=== PATIENT | female | born 1975 | race Caucasian/White ===

== ENCOUNTER 2017-06-23 20:23 | Inpatient (IN) | payer BC ==
[~2017-06-23] VITALS: Ht 165.1 cm; Wt 75.8 kg
[~2017-06-23 20:23] MED LIST: MYLANTA; PEPCID AC PO
--- OUTSIDE RECORDS SUMMARY | 2017-06-23 20:27 | XMS REPORT | Clinical Summary ---
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 Disp. Refills Start End Date Status Date lisdexamfetamine Take 40 mg by mouth every Active (VYVANSE) 40 MG capsule morning. Not on weekends polyethylene glycol Take 17 g by mouth 2 Active (MIRALAX) 17 gram packet (two) times a day. magnesium hydroxide 400 Take 40 mL by mouth once. Active mg/5 mL suspension ONce every other day acetaminophen (TYLENOL) Take 500 mg by mouth Active 500 MG tablet daily as needed for mild pain. ibuprofen (ADVIL,MOTRIN) Take 200 mg by mouth Active 200 MG tablet daily as needed for mild pain. metoprolol succinate XL Take 2 tablets (50 mg 30 tablet 0 12/10/19 12/21/19 Discontin (TOPROL-XL) 25 mg 24 hr total) by mouth nightly 17 17 ued tablet for 30 days. aspirin 81 mg chewable Chew 1 tablet (81 mg 30 tablet 0 12/10/19 Discontin tablet total) daily for 30 days. 17 17 ued famotidine (PEPCID) 20 MG Take 1 tablet (20 mg 20 tablet 0 12/10/19 12/21/19 Discontin tablet total) by mouth 2 (two) 17 17 ued times a day for 10 days. nitroglycerin (NITROSTAT) Place 1 tablet (0.4 mg 20 tablet 0 12/10/19 12/21/19 Discontin 0.4 MG SL tablet total) under the tongue 17 17 ued every 5 (five) minutes as needed for chest pain for up to 10 days. polyethylene glycol Use daily as needed per 12/21/19 12/27/19 Discontin (MIRALAX) 17 gram packet package instructions. Is 17 17 ued over the counter keTOROlac (TORadol) 10 mg Take 1 tablet (10 mg 20 tablet 0 12/24/19 03/17/20 Discontin tablet total) by mouth every 6 17 17 ued (six) hours as needed for moderate pain for up to 20 doses. ciprofloxacin (CIPRO) 500 Take 1 tablet (500 mg 20 tablet 0 12/24/19 01/03/20 MG tablet total) by mouth 2 (two) 17 17 times a day for 10 days. metroNIDAZOLE (FLAGYL) Take 1 tablet (500 mg 30 tablet 0 12/24/19 500 MG tablet total) by mouth 3 (three) 17 17 times a day for 10 days. polyethylene glycol Take 17 g by mouth 2 60 packet 0 12/27/19 (MIRALAX) 17 gram packet (two) times a day for 30 17 17 days. docusate sodium (COLACE) Take 1 capsule (100 mg 60 capsule 0 12/27/19 01/26/20 100 MG capsule total) by mouth 2 (two) 17 17 times a day for 30 days. psyllium husk (METAMUCIL) Take 1 packet by mouth 2 60 packet 0 01/26/20 6 gram packet (two) times a day for 30 17 17 days. ARIPiprazole (ABILIFY) 5 Take 5 mg by mouth 05/20/19 Discontin MG tablet nightly. 18 ued POLYETHYLENE GLYCOL 3350 Take 1 Dose by mouth 04/04/20 Discontin (MIRALAX ORAL) daily as needed. 17 ued HYDROcodone-acetaminophen Take 1 tablet by mouth 05/20/19 Discontin (NORCO) 5-325 mg per every 6 (six) hours as 18 ued tablet needed for moderate pain. acyclovir (ZOVIRAX) 200 Take 1,000 mg by mouth 2 05/20/19 Discontin MG capsule (two) times a day as 18 ued needed. SUPREP BOWEL PREP KIT Take 2 Bottles (354 mL 354 mL 0 03/24/2003/24 17.5-3.13-1.6 gram recon total) by mouth once for 17 17 soln 1 dose. Take as directed by physician traMADol (ULTRAM) 50 mg Take 1 tablet (50 mg 20 tablet 0 12/01/20 12 /06/20 tablet total) by mouth every 6 17 17 (six) hours as needed for moderate pain for up to 5 days. lactulose 20 gram/30 mL Take 15 mL (10 g total) 900 mL 0 05/21/19 solution by mouth 2 (two) times a 18 18 day for 30 days. 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 Generalized abdominal pain 12/24/2016 Bowel obstruction 12/17/2016 Encounters Date Type Specialty Care Team Description 06/02/2017 Procedure visit General Surgery Shailesh Pardo MD Fecal urgency (Primary Dx); Anal stenosis; Other partial intestinal obstruction 05/26/2017 Office Visit General Surgery Shailesh Pardo MD Anal stenosis (Primary Dx) 05/19/2017 [facility] General Surgery Kendall Jasmine MD Lower abdominal pain - Encounter Ambrocio Adams MD (Primary Dx); 05/21/2017 Constipation due to outlet dysfunction 04/16/2017 Office Visit General Surgery Shailesh Pardo MD Change in bowel habits (Primary Dx) 04/01/2017 [facility] General Surgery Shailesh Pardo MD Sigmoid stricture; - Encounter S/P colostomy 04/04/2017 04/01/2017 Procedure Pass General Surgery 04/01/2017 Surgery General Surgery Shailesh Pardo MD LAPAROSCOPIC RECTOSIGMOID RESECTION 03/24/2017 Orders Only General Surgery Shailesh Pardo MD 03/21/2017 Anesthesia General Surgery Destiny Millan, LABOR RELATIONS ANALYST Event 03/17/2017 Pre-Admit Pre-Admission Testing Shailesh Pardo MD Preop testing (Primary Testing Dx) Appointment 02/10/2017 Office Visit General Surgery Shailesh Pardo MD Parastomal hernia without obstruction or gangrene (Primary Dx); Anal stenosis 02/05/2017 Hospital Radiology Shailesh Pardo MD Ileostomy status Encounter 02/04/2017 Orders Only General Surgery Shailesh Pardo MD 02/03/2017 Office Visit General Surgery Shailesh Pardo MD Abdominal pain, generalized (Primary Dx) 02/03/2017 Orders Only General Surgery Shailesh Pardo MD 01/28/2017 Orders Only General Surgery Shailesh Pardo MD 01/20/2017 Orders Only General Surgery Shailesh Pardo MD Ileostomy status (Primary Dx) 01/20/2017 Orders Only General Surgery Shailesh Pardo MD Intestinal obstruction, unspecified type (Primary Dx) 01/15/2017 Office Visit General Surgery Shailesh Pardo MD Colon stricture (Primary Dx) 12/23/2016 Emergency General Surgery David Hernandez MD Generalized abdominal - Mowad, Olga Carl MD pain (Primary Dx); 12/26/2016 Lj Bajwa MD Ileus 12/17/2016 Hospital General Surgery Wayne Ferro MD - Encounter Oliver Everett MD 12/20/2016 12/17/2016 Anesthesia General Surgery Francisca Estrada MD Event 12/17/2016 Procedure Pass General Surgery 12/17/2016 Surgery General Surgery Teja Canas COLOSTOMY, ENMA Kathleen MD 12/09/2016 Emergency Emergency Medicine Quique Mayes Acute angina (Primary MD Car Dx); Other form of dyspnea after 06/22/2016 Family History Medical History Relation Name Comments Diabetes Father Diverticulitis Father Heart disease Father Hypertension Father Diverticulitis Mother Diverticulitis Sister Relation Name Status Comments Father Mother Sister Social History Tobacco Use Types Packs/Day Years Used Date Never Smoker Smokeless Tobacco: Never Used Alcohol Use Drinks/Week oz/Week Comments No Sex Assigned at Date Recorded Not on file Last Filed Vital Signs Vital Sign Reading Time Taken Blood Pressure 122/87 06/02/2017 4:01 PM TELECOMMUNICATION EQUIPMENT REPAIRER Pulse 93 06/02/2017 4:01 PM TELECOMMUNICATION EQUIPMENT REPAIRER Temperature 36.7 C (98 F) 05/21/2017 11:59 AM TELECOMMUNICATION EQUIPMENT REPAIRER Respiratory Rate 18 05/21/2017 11:59 AM TELECOMMUNICATION EQUIPMENT REPAIRER Oxygen Saturation 95% 05/21/2017 11:59 AM TELECOMMUNICATION EQUIPMENT REPAIRER Inhaled Oxygen - - Concentration Weight 76.2 kg (168 lb) 06/02/2017 4:01 PM TELECOMMUNICATION EQUIPMENT REPAIRER Height 165.1 cm (5' 5") 06/02/2017 4:01 PM TELECOMMUNICATION EQUIPMENT REPAIRER Body Mass Index 27.96 06/02/2017 4:01 PM TELECOMMUNICATION EQUIPMENT REPAIRER Plan of Treatment Health Maintenance Due Date Last Done Comments PAP SMEAR 1997 INFLUENZA VACCINE 12/03/2016 Procedures Procedure Name Priority Date/Time Associated Diagnosis Comments IL AN ELECTIVE Routine 04/01/2017 ENDOTRACHEAL AIRWAY 8:34 AM TELECOMMUNICATION EQUIPMENT REPAIRER Procedure Note - Adewunmi, Olufikayo, OPTICAL MANUFACTURING TECHNICIAN - 04/01/2017 8:33 AM TELECOMMUNICATION EQUIPMENT REPAIRER Airway Date/Time: 04/01/2017 7:38 AM Performed by: MACHO COULTER Authorized by: SHAKILA ZAMBRANO Location: OR Urgency: Elective Difficult Airway: No Performed by: resident/C RNA/AA Preoxygena brandan with 100% O2: Yes Mask Ventilatio n: Easy mask Final Airway Type: Endotrache al airway Final Endotrache al Airway: ETT Cuffed: Yes Technique Used: Direct laryngosco py Devices/Me thods Used in Placement: Intubatin g stylet Insertion Site: Oral Blade Type: Banegas Laryngosco pe Blade/Vide olaryngosc ope Blade Size: 2 ETT Size (mm): 7.0 Cuff at minimum occlusion pressure: No Measured from: Lips ETT to Lips (cm): 21 Placement Verified by: CO2 detection, direct visualizat ion and equal breath sounds Laryngosco pic view: Grade IIa - partial view of glottis Rapid Sequence Induction (RSI): No Modified RSI: No Number of Attempts at Approach: 1 Noted that patient has abrasion on lower lip in preop. Eyes taped after LOC. Teeth protected. DL and intubation by aKz soares. Atraumatic intubation . No apparent change to oropharynx /dentition LAPAROSCOPIC COLOSTOMY 04/01/2017 Sigmoid stricture REVERSAL 7:30 AM TELECOMMUNICATION EQUIPMENT REPAIRER Case Notes PINPOINT, AIRSEAL, EST 3 HRS Special Needs PINPOINT, AIRSEAL, EST 3 HRS LAPAROSCOPIC RECTOSIGMOID 04/01/2017 Sigmoid stricture RESECTION 7:30 AM TELECOMMUNICATION EQUIPMENT REPAIRER Case Notes PINPOINT, AIRSEAL, EST 3 HRS Special Needs PINPOINT, AIRSEAL, EST 3 HRS CONSULT TO OSTOMY CARE Routine 12/24/2016 NURSE 7:55 AM CDT CONSULT TO OSTOMY CARE Routine 12/18/2016 NURSE 7:26 AM CDT CENTRAL LINE Routine 12/17/2016 8:18 PM CDT Procedure Note - Francisca Estrada MD - 12/17/2016 8:11 PM CDT Central line Performed by: FRANCISCA ESTRADA Authorized by: FRANCISCA ESTRADA Patient Location: OR Staff: Anesthesio logist: FRANCISCA ESTRADA Performed by: Anesthesio logist Preprocedu re:patient identified , site and side verified, procedure verified, patient position confirmed and pre-op evaluation complete MSBT: antiseptic used during central venous catheter insertion, all elements of maximal sterile barrier technique followed, hand hygiene performed prior to central venous catheter insertion, cap/gown used by other personnel during central venous catheter insertion, solutions labeled and all ports not used during insertion clamped Indication s: Indication s: Vascular access Anesthesia : Anesthesia : General Procedure details: Patient position: Trendelenb urg Catheter Type: Double lumen Catheter Size: 8 Fr Catheter site laterality : Left Ultrasound guidance used: No Ultrasound image saved: No Number of attempts: 1 Guidewire removal: Guidewire removal is confirmed Guidewire removal witnessed by: DRU WILLIAMSON Post-proce dure: Post-proce dure: line sutured and sterile dressing applied per protocol Post-proce dure: Blood cleaned with CHG Assessment : Blood return through all ports and free fluid flow Patient tolerance: Patient tolerated the procedure well with no immediate complicati ons IL AN ELECTIVE Routine 12/17/2016 ENDOTRACHEAL AIRWAY 8:11 PM CDT Procedure Note - Francisca Estrada MD - 12/17/2016 8:10 PM CDT Airway Performed by: FRANCISCA ESTRADA Authorized by: FRANCISCA ESTRADA Location: OR Urgency: Elective Difficult Airway: No Anesthesio logist: FRANCISCA ESTRADA Performed by: anesthesimarita yu Preoxygena brandan with 100% O2: Yes C-spine Precaution s Maintained Throughout : Yes Final Airway Type: Endotrache al airway Final Endotrache al Airway: ETT Cuffed: Yes Technique Used: Direct laryngosco py Insertion Site: Oral Blade Type: Banegas Laryngosco pe Blade/Vide olaryngosc ope Blade Size: 3 ETT Size (mm): 7.0 Cuff at minimum occlusion pressure: Yes Measured from: Gums ETT to Gums (cm): 21 Placement Verified by: CO2 detection, direct visualizat ion and equal breath sounds Laryngosco pic view: Grade I - full view of glottis Rapid Sequence Induction (RSI): Yes Modified RSI: No Number of Attempts at Approach: 1 COLOSTOMY, LAPAROSCOPIC 12/17/2016 COLOSTOMY 6:00 PM CDT after 06/22/2016 Results * Estimated GFR (05/21/2017 4:00 AM) Only the most recent of 13 results within the time period is included. Component Value Ref Range GFR Non Af Amer >90 mL/min/1.73 m2 GFR Af Amer >90 mL/min/1.73 m2 Comment: Chronic kidney disease: <60 mL/min/1.73m2 Kidney failure: <15 mL/min/1.73m2 The estimated GFR is calculated from the IDMS-traceable Modification of Diet in Renal Disease Equation. The accuracy of the calculation is poor when the creatinine is normal. Calculated values >90 mL/min/1.73m2 are not reported. This equation has not been validated in children (<18 years), women, the elderly (>70 years), or ethnic groups other than Caucasians and Americans. Specimen Performing Laboratory Plasma specimen [facility] DEPARTMENT OF PATHOLOGY AND GENOMIC MEDICINE [address] [place] [phone] * Basic metabolic panel (05/21/2017 4:00 AM) Only the most recent of 10 results within the time period is included. Component Value Ref Range Sodium 139 135 - 148 mEq/L Potassium 3.9 3.5 - 5.0 mEq/L Chloride 101 98 - 112 mEq/L CO2 24 24 - 31 mEq/L Anion gap 14 7 - 15 mEq/L Comment: Starting from August , anion gap calculation no longer incorporates potassium. Please note the change. BUN 6 6 - 20 mg/dL Creatinine 0.6 0.5 - 0.9 mg/dL Glucose 81 65 - 99 mg/dL Calcium 8.9 8.3 - 10.2 mg/dL Specimen Performing Laboratory Plasma specimen [facility] DEPARTMENT OF PATHOLOGY AND GENOMIC MEDICINE [address] [place] [id number] * CBC with platelet and differential (05/21/2017 3:40 AM) Only the most recent of 13 results within the time period is included. Component Value Ref Range WBC 4.90 4.50 - 11.00 k/uL RBC 4.13 (L) 4.20 - 5.50 m/uL HGB 10.9 (L) 12.0 - 16.0 g/dL HCT 35.4 (L) 37.0 - 47.0 % MCV 85.7 82.0 - 100.0 fL MCH 26.4 (L) 27.0 - 34.0 pg MCHC 30.8 (L) 31.0 - 37.0 g/dL RDW - SD 48.2 37.0 - 55.0 fL MPV 11.3 8.8 - 13.2 fL Platelet count 353 150 - 400 k/uL Nucleated RBC 0.00 /100 WBC Neutrophils 50.8 39.0 - 69.0 % Lymphocytes 34.1 25.0 - 45.0 % Monocytes 8.6 0.0 - 10.0 % Eosinophils 4.9 0.0 - 5.0 % Basophils 1.2 (H) 0.0 - 1.0 % Immature granulocytes 0.4Comment: "Immature granulocytes" 0.0 - 1.0 % (promyelocytes, myelocytes, metamyelocytes) Specimen Performing Laboratory Blood [facility] DEPARTMENT OF PATHOLOGY AND [facility] MEDICINE [address] [place] [id number] * Hepatic function panel (05/20/2017 4:00 AM) Only the most recent of 2 results within the time period is included. Component Value Ref Range Albumin 3.2 (L) 3.5 - 5.0 g/dL Total bilirubin 0.4 0.0 - 1.2 mg/dL Bilirubin direct <0.2 0.0 - 0.3 mg/dL Alkaline phosphatase 58 35 - 104 U/L Protein 6.9 6.3 - 8.3 g/dL Comment: 4.6-7.0 g/dL 1 week 4.4-7.6 g/dL 7 months-1year 5.1-7.3 g/dL 1-2 years 5.6-7.5 g/dL >3 years 6.0-8.0 g/dL 18-150 6.3-8.3 g/dL ALT 16 5 - 50 U/L AST 19 10 - 35 U/L Specimen Performing Laboratory Plasma specimen [facility] DEPARTMENT OF PATHOLOGY AND GENOMIC MEDICINE [address] [place] [id number] * CT Abdomen Pelvis W Contrast (05/20/2017 12:37 AM) Only the most recent of 2 results within the time period is included. Specimen Performing Laboratory [address] ABDOMEN PELVIS W CONTRAST CLINICAL INDICATION:ABDOMINAL PAIN, concern for obstruction TECHNIQUE: Multidetector CT of the abdomen and pelvis was performed following intravenous administration of iodinated contrast with multiplanar reformats. CT scans are performed using radiation dose reduction techniques (iterative reconstruction and/or automated exposure control). Technical factors are evaluated and adjusted to ensure appropriate moderation of exposure. Automated dose management technology is applied to adjust radiation exposure while achieving a diagnostic quality image. COMPARISON:CT 12/23/2016. FINDINGS: Lung bases:Dependent subsegmental atelectasis/scarring. Liver:Few hypodensities within the liver, larger of which resemble cysts measuring up to 1.0 cm in the right hepatic lobe though some are too small to characterize. Gallbladder and biliary:The gallbladder is absent. Clips within the gallbladder fossa. Pancreas:Normal. Spleen:Normal. Gastrointestinal:Postsurgical changes of the distal colon. Focus of circumscribed fat adjacent to sutures in the left abdomen/retroperitoneum measuring 3.1 x 2.7 x 2.8 cm (series 2 image 88), with mild surrounding stranding. Large and small bowel are normal in caliber. Appendix is visualized and appears normal. Adrenals:Normal. Kidneys and ureters:Bilateral renal cortical scarring. No mass or hydronephrosis. Urinary bladder:Normal. Lymph nodes:No enlarged lymph nodes in the abdomen or pelvis. Peritoneum:No ascites or free air. Vascular:Unremarkable. Reproductive organs:Uterus is normal. Unremarkable adnexae. Abdominal wall: Prior ostomy. Bones:No acute osseous abnormalities. IMPRESSION: 1. Focus of circumscribed fat adjacent to sutures in the left abdomen/ retroperitoneum measuring 3.1 x 2.7 x 2.8 cm with mild surrounding stranding, suggesting fat necrosis. 2. No bowel obstruction or other bowel complication. [facility]-[id number] Procedure Note [facility], Radiology Results Incoming - 05/20/2017 1:05 AM TELECOMMUNICATION EQUIPMENT REPAIRER CT ABDOMEN PELVIS W CONTRAST CLINICAL INDICATION: ABDOMINAL PAIN, concern for obstruction TECHNIQUE: Multidetector CT of the abdomen and pelvis was performed following intravenous administration of iodinated contrast with multiplanar reformats. CT scans are performed using radiation dose reduction techniques (iterative reconstruction and/or automated exposure control). Technical factors are evaluated and adjusted to ensure appropriate moderation of exposure. Automated dose management technology is applied to adjust radiation exposure while achieving a diagnostic quality image. COMPARISON: CT 12/23/2016. FINDINGS: Lung bases: Dependent subsegmental atelectasis/scarring. Liver: Few hypodensities within the liver, larger of which resemble cysts measuring up to 1.0 cm in the right hepatic lobe though some are too small to characterize. Gallbladder and biliary: The gallbladder is absent. Clips within the gallbladder fossa. Pancreas: Normal. Spleen: Normal. Gastrointestinal: Postsurgical changes of the distal colon. Focus of circumscribed fat adjacent to sutures in the left abdomen/retroperitoneum measuring 3.1 x 2.7 x 2.8 cm (series 2 image 88), with mild surrounding stranding. Large and small bowel are normal in caliber. Appendix is visualized and appears normal. Adrenals: Normal. Kidneys and ureters: Bilateral renal cortical scarring. No mass or hydronephrosis. Urinary bladder: Normal. Lymph nodes: No enlarged lymph nodes in the abdomen or pelvis. Peritoneum: No ascites or free air. Vascular: Unremarkable. Reproductive organs: Uterus is normal. Unremarkable adnexae. Abdominal wall: Prior ostomy. Bones: No acute osseous abnormalities. IMPRESSION: 1. Focus of circumscribed fat adjacent to sutures in the left abdomen/ retroperitoneum measuring 3.1 x 2.7 x 2.8 cm with mild surrounding stranding, suggesting fat necrosis. 2. No bowel obstruction or other bowel complication. [facility]-[id number] * XR Abdomen 1 Vw (05/19/2017 10:40 PM) Specimen Performing Laboratory [facility] [address] [place] [id number] Narrative EXAMINATION:XR ABDOMEN 1 VW CLINICAL HISTORY:Bowel obstruction COMPARISON:None. FINDINGS: The bowel gas pattern is nonspecific. No pathologic masses or calcifications are identified. The lung bases are free of acute disease. Regional skeletal structures are within normal limits. Surgical clips are present in the right upper quadrant. IMPRESSION: Unremarkable abdominal radiograph. [facility]-[id number] Procedure Note Interface, Radiology Results Incoming - 05/19/2017 11:03 PM TELECOMMUNICATION EQUIPMENT REPAIRER EXAMINATION: XR ABDOMEN 1 VW CLINICAL HISTORY: Bowel obstruction COMPARISON: None. FINDINGS: The bowel gas pattern is nonspecific. No pathologic masses or calcifications are identified. The lung bases are free of acute disease. Regional skeletal structures are within normal limits. Surgical clips are present in the right upper quadrant. IMPRESSION: Unremarkable abdominal radiograph. [facility]-[id number] * Comprehensive metabolic panel (05/19/2017 10:02 PM) Only the most recent of 3 results within the time period is included. Component Value Ref Range Sodium 139 135 - 148 mEq/L Potassium 3.5 3.5 - 5.0 mEq/L Chloride 98 98 - 112 mEq/L CO2 24 24 - 31 mEq/L Anion gap 17 (H) 7 - 15 mEq/L Comment: Starting from August , anion gap calculation no longer incorporates potassium. Please note the change. BUN 10 6 - 20 mg/dL Creatinine 0.7 0.5 - 0.9 mg/dL Glucose 88 65 - 99 mg/dL Calcium 9.8 8.3 - 10.2 mg/dL Protein 8.3 6.3 - 8.3 g/dL Comment: Parker 4.6-7.0 g/dL 1 week 4.4-7.6 g/dL 7 months-1year 5.1-7.3 g/dL 1-2 years 5.6-7.5 g/dL >3 years 6.0-8.0 g/dL 18-150 6.3-8.3 g/dL Albumin 4.2 3.5 - 5.0 g/dL A/G ratio 1.0 0.7 - 3.8 Alkaline phosphatase 69 35 - 104 U/L AST 17 10 - 35 U/L ALT 19 5 - 50 U/L Total bilirubin 0.4 0.0 - 1.2 mg/dL Specimen Performing Laboratory Plasma specimen [facility] DEPARTMENT OF PATHOLOGY AND GENOMIC MEDICINE [address] [place], [place] [id number] * Phosphorus level (04/04/2017 4:00 AM) Only the most recent of 3 results within the time period is included. Component Value Ref Range Phosphorus 3.4 2.4 - 4.5 mg/dL Specimen Performing Laboratory Plasma specimen [facility] DEPARTMENT OF PATHOLOGY AND [facility] MEDICINE [address] [place] [id number] * Magnesium level (04/04/2017 4:00 AM) Only the most recent of 7 results within the time period is included. Component Value Ref Range Magnesium 2.0 1.6 - 2.6 mg/dL Specimen Performing Laboratory Plasma specimen [facility] DEPARTMENT OF PATHOLOGY AND GENOMIC MEDICINE [address] [place], [place] [id number] * Surgical pathology request (04/01/2017 12:40 PM) Only the most recent of 3 results within the time period is included. Component Value Ref Range Surgical pathology report See link below for PDF Lab Report Result status This is Final Report to [id number] Specimen Performing Laboratory [facility] DEPARTMENT OF PATHOLOGY AND GENOMIC MEDICINE [address] [place] [id number] * ECG 12 lead (03/17/2017 10:54 AM) Only the most recent of 3 results within the time period is included. Component Value Ref Range Ventricular rate 76 Atrial rate 76 IL interval 148 QRSD interval 82 QT interval 382 QTC interval 429 P axis 1 63 QRS axis 1 42 T wave axis 36 EKG impression Normal sinus rhythm-Normal ECG- Specimen Performing Laboratory [facility] MUSE [address] [place] [id number] * Type and screen (03/17/2017 9:32 AM) Only the most recent of 2 results within the time period is included. Component Value Ref Range ABO grouping A Rh type POS Antibody screen (gel) NEG Specimen Performing Laboratory Blood [facility] DEPARTMENT OF PATHOLOGY AND GENOMIC MEDICINE [address] [place] [address] * FL Colon Gastrografin Water Soluble Enema (02/05/2017 11:26 AM) Specimen Performing Laboratory [facility] [address] [place] [address] Narrative EXAMINATION:FL COLON GASTROGRAFIN WATER SOLUBLE ENEMA CLINICAL HISTORY:Z93.2 Ileostomy status, ileostomy status COMPARISON:CT December 23, 2016. TECHNIQUE:Gastrografin contrast was administered via a rectal tube by gravity under fluoroscopic guidance. The colon was opacified in a retrograde fashion to the cecum. Spot radiographs and overhead films were obtained. FLUOROSCOPIC TIME:1.2 minute. 15 fluoroscopic spot images are acquired. IMPRESSION: [employer] radiograph is within normal limits. Ostomy is seen in the left lower quadrant. There was successful retrograde opacification of the rectum and sigmoid colon up to the ostomy. The rectum is normally distensible, and the sigmoid appears slightly attenuated in caliber but without focal stricture identified. Somewhat narrowed appearance leading into the ostomy bag is of questionable for true stricture versus some expected tapering in the subcutaneous segment. No extraluminal contrast extravasation. Unremarkable enema. [facility]-[id number] Procedure Note Hm Interface, Radiology Results Incoming - 02/05/2017 12:47 PM CDT EXAMINATION: FL COLON GASTROGRAFIN WATER SOLUBLE ENEMA CLINICAL HISTORY: Z93.2 Ileostomy status, ileostomy status COMPARISON: CT December 23, 2016. TECHNIQUE: Gastrografin contrast was administered via a rectal tube by gravity under fluoroscopic guidance. The colon was opacified in a retrograde fashion to the cecum. Spot radiographs and overhead films were obtained. FLUOROSCOPIC TIME: 1.2 minute. 15 fluoroscopic spot images are acquired. IMPRESSION: [employer] radiograph is within normal limits. Ostomy is seen in the left lower quadrant. There was successful retrograde opacification of the rectum and sigmoid colon up to the ostomy. The rectum is normally distensible, and the sigmoid appears slightly attenuated in caliber but without focal stricture identified. Somewhat narrowed appearance leading into the ostomy bag is of questionable for true stricture versus some expected tapering in the subcutaneous segment. No extraluminal contrast extravasation. Unremarkable enema. [facility]-[id number] * Radiology Exam Surg Specimen (01/29/2017) * ECG ED Preliminary Interpretation - NOT AN ORDER (12/24/2016 1:21 AM) Only the most recent of 2 results within the time period is included. Narrative Olga Fox MD 12/24/20161:21 AM ECG ED Preliminary Interpretation - Not an Order Performed by: STEPH NICHOLS Authorized by: DAVID HERNANDEZ ECG reviewed by ED Physician in the absence of a cryptographic technician: yes Interpretation: Interpretation: abnormal Rate: ECG rate:53 Rhythm: Rhythm: sinus rhythm Ectopy: Ectopy: none QRS: QRS intervals:Wide (118 ms) Conduction: Conduction: abnormal Abnormal conduction: incomplete RBBB T waves: T waves: inverted Inverted:V2 and V3 * Urinalysis screen and microscopy, with reflex to culture (12/23/2016 6:30 PM) Only the most recent of 3 results within the time period is included. Component Value Ref Range Specimen site Clean catch Color, UA Yellow Appearance, UA Clear Specific gravity, UA 1.015 1.001 - 1.035 pH, UA 7.0 5.0 - 8.5 Protein, UA Negative Negative Glucose, UA Negative Negative Ketones, UA Negative Negative Bilirubin, UA Negative Negative Blood, UA Large (A) Negative Nitrite, UA Negative Negative Urobilinogen, UA <2.0 <2.0 Leukocyte esterase, UA Trace (A) Negative Epithelial cells, UA 2 /HPF Round epithelial cells, 0 0 - 1 /HPF UA WBC, UA 4 0 - 4 /HPF RBC, UA 2 0 - 2 /HPF Bacteria, UA Moderate (A) None seen Yeast, UA None seen Yeast with pseudohyphae, None seen UA Specimen Performing Laboratory Urine DEPARTMENT OF PATHOLOGY AND [facility]IC[facility], [address] [place] [address] * hCG qualitative, urine screen (12/23/2016 6:30 PM) Only the most recent of 3 results within the time period is included. Component Value Ref Range hCG qualitative, urine NegativeComment: Sensitivity of HCG test: 25 mIU/mL Specimen Performing Laboratory Urine DEPARTMENT OF PATHOLOGY AND GENOMIC MEDICINE[address] [place] [address] * Gram stain (12/23/2016 6:28 PM) Only the most recent of 3 results within the time period is included. Component Value Ref Range Gram stain result No WBC's Rare Gram positive rods Occasional Gram positive cocci in pairs Comment: Specimen Information Specimen Source: Urine Specimen Site: Clean catch Specimen Performing Laboratory Urine [facility] DEPARTMENT OF PATHOLOGY AND GENOMIC MEDICINE [address] [place] [address] * Urine culture (12/23/2016 6:28 PM) Only the most recent of 3 results within the time period is included. Component Value Ref Range Urine culture isolate Mixed Gram positive vlad 10-2 cfu/ml (A) Comment: Specimen Information Specimen Source: Urine Specimen Site: Clean catch Specimen Performing Laboratory Urine [facility] DEPARTMENT OF PATHOLOGY AND GENOMIC MEDICINE [address] [place] [address] * US Renal (12/19/2016 12:57 PM) [place] [address] Narrative EXAMINATION:US RENAL CLINICAL HISTORY:HYDRONEPHROSIS, Hematuria COMPARISON:None. FINDINGS: The kidneys are normal in size and echogenicity. There is no evidence of any solid renal mass, calculi, or hydronephrosis. The right kidney ystkqtqy78.3X5.4X5.4 cm.there is a small cyst seen within the right kidney.. The left kidney ckahscjw47.4X5.7 X 5.8 cm. The urinary bladder is unremarkable. IMPRESSION: 1.Normal renal ultrasound examination. 2. The kidneys are of normal size and echotexture. [id number] Procedure Note Interface, Radiology Results Incoming - 12/19/2016 2:41 PM CDT EXAMINATION: US RENAL CLINICAL HISTORY: HYDRONEPHROSIS, Hematuria COMPARISON: None. FINDINGS: The kidneys are normal in size and echogenicity. There is no evidence of any solid renal mass, calculi, or hydronephrosis. The right kidney measures 12.3 X 5.4 X 5.4 cm. there is a small cyst seen within the right kidney.. The left kidney measures 13.4 X 5.7 X 5.8 cm. The urinary bladder is unremarkable. IMPRESSION: 1.Normal renal ultrasound examination. 2. The kidneys are of normal size and echotexture. [id number] * POC glucose (12/18/2016 5:05 AM) Only the most recent of 3 results within the time period is included. Component Value Ref Range POC glucose 155 (H) 65 - 99 mg/dL Comment: [facility] Notified RN Meter ID: [id number] Senior Specialist: Carlos Ortega Specimen Performing Laboratory [facility] DEPARTMENT OF PATHOLOGY AND GENOMIC MEDICINE [address] [place] [address] * Fungus smear (12/17/2016 8:05 PM) Component Value Ref Range Fungus smear No fungi observed. Comment: Specimen Information Specimen Source: Peritoneal fluid Specimen Site: Not otherwise specified Specimen Performing Laboratory Peritoneal fluid - Not [facility] DEPARTMENT OF PATHOLOGY AND GENOMIC MEDICINE otherwise specified [address] [place] [address] * AFB culture (12/17/2016 8:05 PM) Component Value Ref Range AFB culture isolate No growth after 6 weeks of incubation. Comment: Specimen Information Specimen Source: Peritoneal fluid Specimen Site: Not otherwise specified Specimen Performing Laboratory Peritoneal fluid - Not [facility] DEPARTMENT OF PATHOLOGY AND GENOMIC MEDICINE otherwise specified [address] [place], [place] [id number] * Aerobic culture (12/17/2016 8:05 PM) Component Value Ref Range Aerobic culture isolate No growth after 3 days. Comment: Specimen Information Specimen Source: Peritoneal fluid Specimen Site: Not otherwise specified Specimen Performing Laboratory Peritoneal fluid - Not [facility] DEPARTMENT OF PATHOLOGY AND GENOMIC MEDICINE otherwise specified [address] [place] [address] * AFB stain (12/17/2016 8:05 PM) Component Value Ref Range AFB stain No acid fast bacilli (AFB) seen. Comment: Specimen Information Specimen Source: Peritoneal fluid Specimen Site: Not otherwise specified Specimen Performing Laboratory Peritoneal fluid - Not [facility] DEPARTMENT OF PATHOLOGY AND GENOMIC MEDICINE otherwise specified [address] [place] [address] * Fungus culture (12/17/2016 8:05 PM) Component Value Ref Range Fungus culture isolate No growth after 4 weeks of incubation. Comment: Specimen Information Specimen Source: Peritoneal fluid Specimen Site: Not otherwise specified Specimen Performing Laboratory Peritoneal fluid - Not [facility] DEPARTMENT OF PATHOLOGY AND [facility] otherwise specified [address] [place] [address] * Anaerobic culture (12/17/2016 8:05 PM) Component Value Ref Range Anaerobic culture isolate No anaerobic organisms isolated. Comment: Specimen Information Specimen Source: Peritoneal fluid Specimen Site: Not otherwise specified Specimen Performing Laboratory Peritoneal fluid - Not [facility] OF PATHOLOGY AND [facility] otherwise specified [address] [place] [address] * Partial thromboplastin time, activated (12/17/2016 4:15 PM) Only the most recent of 2 results within the time period is included. Component Value Ref Range PTT 26.0 23.0 - 36.0 sec Comment: PTT therapeutic range for unfractionated heparin is 61.0-112.0 seconds which corresponds to Anti-Xa 0.3-0.7 U/ml. Specimen Performing Laboratory Blood [facility] OF PATHOLOGY AND [place] [id number] * Prothrombin time with INR (12/17/2016 4:15 PM) Only the most recent of 2 results within the time period is included. Component Value Ref Range Prothrombin time 13.8 12.0 - 15.0 sec INR 1.1 Comment: The International Normalized Ratio (INR) is a therapeutic monitoring tool for patients who are stable on oral anticoagulant therapy. An INR of 2.0-3.0 is suggested for deep vein thrombosis/pulmonary embolism. Specimen Performing Laboratory Blood [facility] DEPARTMENT OF PATHOLOGY AND [address] [address] * CT Angiogram Pe Chest (12/09/2016 6:39 PM) Specimen [facility] [address] [place] [address] Narrative EXAMINATION: CT ANGIOGRAM PE CHEST CLINICAL HISTORY: Chest Pain TECHNIQUE: An emergency study was performed at [address] images were acquired using low-dose technique with iterative reconstructions and or automated exposure control to reduce radiation dose. CT angiographic images of the chest were obtained during intravenous administration of iodinated contrast. Computerized reformatted images and 3-D MIP images were also obtained and archived (CT pulmonary embolus protocol). COMPARISON: PA and lateral chest, obtained on 12/09/2016. FINDINGS: Skeletal structures are within normal limits.There is no pleural fluid or infiltrate. The heart is normal in size. Aorta and great vessels are normal. Pulmonary arteries are well opacified. Filling defect is not seen. Pulmonary veins are normal in caliber.Mediastinum is free of masses and adenopathy.Visualized portions of the upper abdomen demonstrate postoperative changes from cholecystectomy. IMPRESSION: No pulmonary emboli. Normal CT scan of the chest. Status post cholecystectomy. [id number] Procedure Note [facility], Radiology Results Incoming - 12/09/2016 6:50 PM CDT EXAMINATION: CT ANGIOGRAM PE CHEST CLINICAL HISTORY: Chest Pain TECHNIQUE: An emergency study was performed at [address] images were acquired using low-dose technique with iterative reconstructions and or automated exposure control to reduce radiation dose. CT angiographic images of the chest were obtained during intravenous administration of iodinated contrast. Computerized reformatted images and 3-D MIP images were also obtained and archived (CT pulmonary embolus protocol). COMPARISON: PA and lateral chest, obtained on 12/09/2016. FINDINGS: Skeletal structures are within normal limits. There is no pleural fluid or infiltrate. The heart is normal in size. Aorta and great vessels are normal. Pulmonary arteries are well opacified. Filling defect is not seen. Pulmonary veins are normal in caliber. Mediastinum is free of masses and adenopathy. Visualized portions of the upper abdomen demonstrate postoperative changes from cholecystectomy. IMPRESSION: No pulmonary emboli. Normal CT scan of the chest. Status [facility]cyst[facility]. [id number] * Troponin (12/09/2016 5:10 PM) Only the most recent of 2 results within the time period is included. Component Value Ref Range Troponin <0.30 0.00 - 0.30 ng/mL Comment: 0.30 - 1.49 ng/ml May indicate increased risk of acute coronary syndrome. >=1.5 ng/ml Consistent with acute myocardial infarction. The diagnostic value of a single normal or non-diagnostic result is questionable. Serial samples at 2-6 hour intervals are required to rule out acute myocardial injury. Specimen Performing Laboratory Plasma specimen [facility] DEPARTMENT OF PATHOLOGY AND GENOMIC MEDICINE [address] [place] [address] * B natriuretic peptide (12/09/2016 3:21 PM) Component Value Ref Range BNP 11 0 - 100 pg/mL Specimen Performing Laboratory Blood [facility] DEPARTMENT OF PATHOLOGY AND GENOMIC MEDICINE [address] [place] [address] * XR Chest 2 Vw (12/09/2016 2:38 PM) Specimen Performing Laboratory [facility] [address] [place] [address] Narrative EXAMINATION:XR CHEST 2 VW CLINICAL HISTORY:Chest Pain COMPARISON:None. FINDINGS: Two views of the chest demonstrate normal cardiomediastinal silhouette. Pulmonary vasculature is within normal limits. Both lungs are clear. No pleural disease is identified. Regional osseous structures is unremarkable. IMPRESSION: No radiographic evidence of acute cardiopulmonary process or active disease of the chest. [id number] Procedure Note Interface, Radiology Results Incoming - 12/09/2016 2:44 PM CDT EXAMINATION: XR CHEST 2 VW CLINICAL HISTORY: Chest Pain COMPARISON: None. FINDINGS: Two views of the chest demonstrate normal cardiomediastinal silhouette. Pulmonary vasculature is within normal limits. Both lungs are clear. No pleural disease is identified. Regional osseous structures is unremarkable. IMPRESSION: No radiographic evidence of acute cardiopulmonary process or active disease of the chest. [id number] after 06/22/2016 Insurance Payer Benefit Subscriber ID Type Phone Address Plan / Group [facility] SUJATA xxxxxxxxxxxx PPO BLUE CROSS BCBS BCBS xxxxxxxxxxxx PPO CHOICE PPO/[place] [address] [place] [address]
[2017-06-23] MEDS ORDERED: DIATRIZOATE MEGL/DIATRIZOA SOD 30 ML BTL PO ONE (21:30)
[2017-06-23 21:33] LABS: BILIRUBIN,URINE NEGATIVE (NEGATIVE); COLOR,URINE YELLOW (YELLOW); KETONES,URINE NEGATIVE (NEGATIVE); LEUKOCYTE ESTERASE ,URINE TRACE (NEGATIVE); NITRITE,URINE NEGATIVE (NEGATIVE); PROTEIN,URINE DIPSTICK NEGATIVE (NEGATIVE); URINE UROBILINOGEN 0.2 mg/dL (0.2 - 1)
[2017-06-23 21:35] LABS: CLARITY,URINE SL CLOUDY (CLEAR); PREGNANCY TEST, URINE NEGATIVE (NEGATIVE)
[2017-06-23] MEDS ORDERED: MORPHINE SULFATE 2 MG/ML SYR IV STA (21:35)
[2017-06-23] MEDS ORDERED: ONDANSETRON HCL INJ 2 MG/ML VIAL IV STA ×2 (21:35→23:50)
[2017-06-23 21:45] LABS: BASOPHILS # (AUTO) 0.1 (0.0-0.1); EOSINOPHILS # (AUTO) 0.3 (0.0-0.4); EOSINOPHILS % 3.6 % (0.0-6.0); HEMATOCRIT 33.2 % (34.2-44.1); HEMOGLOBIN 10.7 g/dL (12.0-16.0); LYMPHOCYTES # (AUTO) 2.4 (1.0-3.2); LYMPHOCYTES % 27.3 % (18.0-39.1); MEAN CORPUSCULAR HEMOGLOBIN 26.6 pg (28-32); MEAN CORPUSCULAR HGB CONC 32.2 g/dL (31-35); MEAN CORPUSCULAR VOLUME 82.4 fL (81-99); MONOCYTES # (AUTO) 0.8 (0.2-0.8); MONOCYTES % 8.7 % (4.4-11.3); NEUTROPHILS # (AUTO) 5.3 (2.1-6.9); NEUTROPHILS % 59.2 % (38.7-80.0); PLATELET COUNT 344 x10e3/uL (140-360); RED BLOOD COUNT 4.03 x10e6/uL (3.6-5.1)
[2017-06-23 21:46] LABS: EPITHELIAL CELLS,URINE MODERATE /LPF; WBC,URINE (MAN) 0-5 /HPF (0-5)
[2017-06-23] MEDS ORDERED: linzess PO (22:00)
[2017-06-23] MEDS ORDERED: EYE DROPS15 M1 BLADIN (22:00)
[2017-06-23] MEDS ORDERED: MIRALAX17 GM PO (22:00)
[2017-06-23] MEDS ORDERED: VYVANSE40 MG PEG (22:00)
[2017-06-23 22:04] LABS: ALANINE AMINOTRANSFERASE 10 IU/L (0-55); ALBUMIN 3.9 g/dL (3.5-5.0); ALBUMIN/GLOBULIN RATIO 1.1 (0.8-2.0); ALKALINE PHOSPHATASE 60 IU/L (40-150); AMYLASE 38 U/L (25-125); ANION GAP 11.7 mmol/L (8-16); BLOOD UREA NITROGEN 11 mg/dL (7-26); BUN/CREATININE RATIO 15 (6-25); CALCIUM 9.1 mg/dL (8.4-10.2); CARBON DIOXIDE 25 mmol/L (22-29); CHLORIDE 107 mmol/L (98-107); CREATININE, SERUM 0.75 mg/dL (0.57-1.11); EST GLOMERULAR FILTRATION RATE > 60 ML/MIN (60-); GLUCOSE 88 mg/dL (74-118); LIPASE 33 U/L (8-78); POTASSIUM 3.7 mmol/L (3.5-5.1); SODIUM 140 mmol/L (136-145)
[2017-06-23] MEDS ORDERED: IOPAMIDOL 370 MG/ML 200 ML INFUS..BTL INJ ONE (22:58)
--- NOTE | 2017-06-23 23:59 | Diagnostic Imaging Report ---
EXAM: CT Abdomen and Pelvis WITH contrast INDICATION: Abdominal pain COMPARISON: 12/17/2016. TECHNIQUE: Abdomen and pelvis were scanned utilizing a multidetector helical scanner from the lung base to the pubic symphysis after administration of IV contrast. Coronal and sagittal reformations were obtained. Routine protocol was performed. Scan was performed when during portal venous phase. IV CONTRAST: 100 mL of Isovue-370 ORAL CONTRAST: Gastrografin RADIATION DOSE: Total DLP: 448.55 mGy*cm Estimated effective dose: (DLP x 0.015 x size factor) mSv COMPLICATIONS: None FINDINGS: LINES and TUBES: None. LOWER THORAX: Unremarkable HEPATOBILIARY: There are few too small to characterize hypodensities in the liver, likely benign. No biliary ductal dilation. GALLBLADDER: There are cholecystectomy clips. SPLEEN: No splenomegaly. PANCREAS: No focal masses or ductal dilatation. ADRENALS: No adrenal nodules KIDNEYS/URETERS: Kidneys enhance symmetrically. No hydronephrosis. No cystic or solid mass lesions. No stones. GI TRACT: No abnormal distention, wall thickening, or evidence of bowel obstruction. Evidence of prior segmental resection of the sigmoid colon/high rectum. Appendix is normal. PELVIC ORGANS/BLADDER: Unremarkable. LYMPH NODES: No lymphadenopathy. VESSELS: Unremarkable. PERITONEUM / RETROPERITONEUM: No free air or fluid. BONES: Unremarkable. SOFT TISSUES: Unremarkable. IMPRESSION: 1. No evidence of acute intra-abdominal or pelvic abnormality. Signed by: Dr. Garrett Yu M.D. on 06/23/2017 11:55 PM
[2017-06-24] VITALS (7 sets, daily range): BP systolic 124–132; BP diastolic 57–65
[2017-06-24] MEDS: SODIUM CHLORIDE 0.9% 1000ML 1,000 ML IV SCH ×4 (00:23→23:01)
--- OUTSIDE RECORDS SUMMARY | 2017-06-24 00:37 | XMS REPORT ---
Author Author [facility] Address Unknown Phone Unavailable Care Team Providers Care Faculty Support Coordinator Name Role Phone SHIRLEY HILLS Unavailable Unavailable Problems This patient has no known problems. Allergies, Adverse Reactions, Alerts This patient has no known allergies or adverse reactions. Medications This patient has no known medications. Results Test Description Test Time Test Comments Text Results Atomic Results Result Comments CT ABDOMEN/PELVIS W [place] [address] Patient Name: HEATHER MARTIN MR #: [id number] : 1975 Age/Sex: 41/F Req #: [id number] Adm Physician: Ordered by: SHIRLEY HILLS MD Report #: [id number] Location: ER Room/Bed: ___ Procedure: [id number] CT/CT ABDOMEN/PELVIS W Exam Date: 06/23/17 Exam Time: 2240 REPORT STATUS: Signed EXAM: CT Abdomen and Pelvis WITH contrast INDICATION: Abdominal pain COMPARISON: . TECHNIQUE: Abdomen and pelvis were scanned utilizing a multidetector helical scanner from the lung base to the pubic symphysis after administration of IV contrast. Coronal and sagittal reformations were obtained. Routine protocol was performed. Scan was performed when during portal venous phase. IV CONTRAST: 100 mL of Isovue-370 ORAL CONTRAST: Gastrografin RADIATION DOSE: Total DLP: 448.55 mGy*cm Estimated effective dose: (DLP x 0.015 x size factor) mSv COMPLICATIONS: None FINDINGS: LINES and TUBES: None. LOWER THORAX: Unremarkable HEPATOBILIARY: There are few too small to characterize hypodensities in the liver, likely benign. No biliary ductal dilation. GALLBLADDER: There are cholecystectomy clips. SPLEEN: No splenomegaly. PANCREAS: No focal masses or ductal dilatation. ADRENALS: No adrenal nodules KIDNEYS/URETERS: Kidneys enhance symmetrically. No hydronephrosis. No cystic or solid mass lesions. No stones. GI TRACT: No abnormal distention, wall thickening, or evidence of bowel obstruction. Evidence of prior segmental resection of the sigmoid colon/ high rectum. Appendix is normal. PELVIC ORGANS/BLADDER: Unremarkable. LYMPH NODES: No lymphadenopathy. VESSELS: Unremarkable. PERITONEUM / RETROPERITONEUM: No free air or fluid. BONES: Unremarkable. SOFT TISSUES: Unremarkable. IMPRESSION: 1. No evidence of acute intra-abdominal or pelvic abnormality. Signed by: Dr. Garrett Yu M.D. on 06/23/2017 11:55 PM Dictated By: GARRETT CAMPBELL MD [id number] Transcribed By: LILY on 06/23/17 7491 COPY TO: SHIRLEY IHLLS MD
--- OUTSIDE RECORDS SUMMARY | 2017-06-24 00:37 | XMS REPORT | Clinical Summary ---
Author Author [facility] Organization [facility] Address Unknown Phone Unavailable Care Team Providers Care Booking Agent Name Role Phone Asked, Pcp PCP Unavailable [...] Pardo MD Anal stenosis (Primary Dx) 05/19/2017 [facility] General Surgery Kendall Jasmine MD Lower abdominal pain - Encounter Ambrocio Adams MD (Primary Dx); 05/21/2017 Constipation due to outlet dysfunction 04/16/2017 Office Visit General Surgery Shailesh Pardo MD Change in bowel habits (Primary Dx) 04/01/2017 [facility] General Surgery Shailesh Pardo MD Sigmoid stricture; - Encounter S/P colostomy 04/04/2017 04/01/2017 Procedure Pass General Surgery 04/01/2017 Surgery General Surgery Shailesh Pardo MD LAPAROSCOPIC RECTOSIGMOID RESECTION 03/24/2017 Orders Only General Surgery Shailesh Pardo MD 03/21/2017 Anesthesia General Surgery Destiny Millan, HAND SURGEON Event 03/17/2017 Pre-Admit Pre-Admission Testing Shailesh Pardo [...] Car Dx); Other form of dyspnea after 06/23/2016 Family History Medical History Relation Name Comments [...] Taken Blood Pressure 122/87 06/02/2017 4:01 PM JUMP ROLL OPERATOR Pulse 93 06/02/2017 4:01 PM JUMP ROLL OPERATOR Temperature 36.7 C (98 F) 05/21/2017 11:59 AM JUMP ROLL OPERATOR Respiratory Rate 18 05/21/2017 11:59 AM JUMP ROLL OPERATOR Oxygen Saturation 95% 05/21/2017 11:59 AM JUMP ROLL OPERATOR Inhaled Oxygen - - Concentration Weight 76.2 kg (168 lb) 06/02/2017 4:01 PM JUMP ROLL OPERATOR Height 165.1 cm (5' 5") 06/02/2017 4:01 PM JUMP ROLL OPERATOR Body Mass Index 27.96 06/02/2017 4:01 PM JUMP ROLL OPERATOR Plan of Treatment Health Maintenance Due Date Last Done Comments PAP SMEAR 1997 INFLUENZA VACCINE 12/03/2016 Procedures Procedure Name Priority Date/Time Associated Diagnosis Comments NV AN ELECTIVE Routine 04/01/2017 ENDOTRACHEAL AIRWAY 8:34 AM JUMP ROLL OPERATOR Procedure Note - Adewunmi, Olufikayo, SENIOR JAVA UI DEVELOPER - 04/01/2017 8:33 AM JUMP ROLL OPERATOR Airway Date/Time: 04/01/2017 7:38 AM Performed by: [...] LOC. Teeth protected. DL and intubation by Kaz soares. Atraumatic intubation . No apparent change to oropharynx /dentition LAPAROSCOPIC COLOSTOMY 04/01/2017 Sigmoid stricture REVERSAL 7:30 AM JUMP ROLL OPERATOR Case Notes PINPOINT, AIRSEAL, EST 3 HRS Special Needs PINPOINT, AIRSEAL, EST 3 HRS LAPAROSCOPIC RECTOSIGMOID 04/01/2017 Sigmoid stricture RESECTION 7:30 AM JUMP ROLL OPERATOR Case Notes PINPOINT, AIRSEAL, EST 3 HRS [...] procedure well with no immediate complicati ons NV AN ELECTIVE Routine 12/17/2016 ENDOTRACHEAL AIRWAY 8:11 [...] LAPAROSCOPIC 12/17/2016 COLOSTOMY 6:00 PM CDT after 06/23/2016 Results * Estimated GFR (05/21/2017 4:00 AM) [...] and Americans. Specimen Performing Laboratory Plasma specimen [facility] DEPARTMENT OF PATHOLOGY AND GENOMIC MEDICINE [address] [place] [address] * Basic metabolic panel (05/21/2017 4:00 AM) [...] 10.2 mg/dL Specimen Performing Laboratory Plasma specimen [facility] DEPARTMENT OF PATHOLOGY AND GENOMIC MEDICINE [address] [place] [address] * CBC with platelet and differential (05/21/2017 [...] (promyelocytes, myelocytes, metamyelocytes) Specimen Performing Laboratory Blood [facility] DEPARTMENT OF PATHOLOGY AND [facility] [address] [place] [address] * Hepatic function panel (05/20/2017 4:00 AM) [...] 35 U/L Specimen Performing Laboratory Plasma specimen [facility] DEPARTMENT OF PATHOLOGY AND GENOMIC MEDICINE [address] [place] [address] * CT Abdomen Pelvis W Contrast (05/20/2017 12:37 AM) Only the most recent of 2 results within the time period is included. Specimen Performing Laboratory [address] ABDOMEN PELVIS W CONTRAST CLINICAL [...] No bowel obstruction or other bowel complication. [facility]-[id number] Procedure Note [facility], Radiology Results Incoming - 05/20/2017 1:[address] ABDOMEN PELVIS W CONTRAST CLINICAL INDICATION: [...] No bowel obstruction or other bowel complication. [facility]-[id number] * XR Abdomen 1 Vw (05/19/2017 10:40 PM) Specimen Performing Laboratory [facility] [address] [place] [address] Narrative EXAMINATION:XR ABDOMEN 1 VW CLINICAL HISTORY:Bowel obstruction COMPARISON:None. FINDINGS: The bowel gas pattern is nonspecific. No pathologic masses or calcifications are identified. The lung bases are free of acute disease. Regional skeletal structures are within normal limits. Surgical clips are present in the right upper quadrant. IMPRESSION: Unremarkable abdominal radiograph. [facility]-[id number] Procedure Note Interface, Radiology Results Incoming - 05/19/2017 11:03 PM JUMP ROLL OPERATOR EXAMINATION: XR ABDOMEN 1 VW CLINICAL HISTORY: Bowel obstruction COMPARISON: None. FINDINGS: The bowel gas pattern is nonspecific. No pathologic masses or calcifications are identified. The lung bases are free of acute disease. Regional skeletal structures are within normal limits. Surgical clips are present in the right upper quadrant. IMPRESSION: Unremarkable abdominal radiograph. [facility]-[id number] * Comprehensive metabolic panel (05/19/2017 10:02 PM) [...] Protein 8.3 6.3 - 8.3 g/dL Comment: [place] 4.6-7.0 g/dL 1 week 4.4-7.6 g/dL 7 [...] 1.2 mg/dL Specimen Performing Laboratory Plasma specimen [facility] DEPARTMENT OF PATHOLOGY AND GENOMIC MEDICINE [address] [place], [place] [id number] * Phosphorus level (04/04/2017 4:00 AM) Only the most recent of 3 results within the time period is included. Component Value Ref Range Phosphorus 3.4 2.4 - 4.5 mg/dL Specimen Performing Laboratory Plasma specimen [facility] DEPARTMENT OF PATHOLOGY AND [facility] [address] [place] [address] * Magnesium level (04/04/2017 4:00 AM) Only the most recent of 7 results within the time period is included. Component Value Ref Range Magnesium 2.0 1.6 - 2.6 mg/dL Specimen Performing Laboratory Plasma specimen [facility] DEPARTMENT OF PATHOLOGY AND GENOMIC MEDICINE [address] [place], [place] [id number] * Surgical pathology request (04/01/2017 12:40 PM) Only the most recent of 3 results within the time period is included. Component Value Ref Range Surgical pathology report See link below for PDF Lab Report Result status This is Final Report to [id number] Specimen Performing Laboratory [facility] DEPARTMENT OF PATHOLOGY AND GENOMIC MEDICINE [address] [place] [address] * ECG 12 lead (03/17/2017 10:54 AM) Only the most recent of 3 results within the time period is included. Component Value Ref Range Ventricular rate 76 Atrial rate 76 NV interval 148 QRSD interval 82 QT interval 382 QTC interval 429 P axis 1 63 QRS axis 1 42 T wave axis 36 EKG impression Normal sinus rhythm-Normal ECG- Specimen Performing Laboratory [facility] MUSE [address] [place] [address] * Type and screen (03/17/2017 9:32 AM) Only the most recent of 2 results within the time period is included. Component Value Ref Range ABO grouping A Rh type POS Antibody screen (gel) NEG Specimen Performing Laboratory Blood [facility] DEPARTMENT OF PATHOLOGY AND GENOMIC MEDICINE [address] [place] [address] * FL Colon Gastrografin Water Soluble Enema (02/05/2017 11:26 AM) Specimen Performing Laboratory [facility] [address] [place] [address] Narrative EXAMINATION:FL COLON GASTROGRAFIN WATER SOLUBLE ENEMA CLINICAL HISTORY:Z93.2 Ileostomy status, ileostomy status COMPARISON:CT December 23, 2016. TECHNIQUE:Gastrografin contrast was administered via a rectal tube by gravity under fluoroscopic guidance. The colon was opacified in a retrograde fashion to the cecum. Spot radiographs and overhead films were obtained. FLUOROSCOPIC TIME:1.2 minute. 15 fluoroscopic spot images are acquired. IMPRESSION: Watch Train Inspector radiograph is within normal limits. Ostomy is [...] segment. No extraluminal contrast extravasation. Unremarkable enema. [facility]-[id number] Procedure Note Hm Interface, Radiology Results Incoming [...] 15 fluoroscopic spot images are acquired. IMPRESSION: Watch Train Inspector radiograph is within normal limits. Ostomy is [...] segment. No extraluminal contrast extravasation. Unremarkable enema. [facility]-[id number] * Radiology Exam Surg Specimen (01/29/2017) * ECG ED Preliminary Interpretation - NOT AN ORDER (12/24/2016 1:21 AM) Only the most recent of 2 results within the time period is included. Narrative Olga Fox MD 12/24/20161:21 AM ECG ED Preliminary Interpretation - Not an Order Performed by: STEPH NICHOLS Authorized by: DAVID HERNANDEZ ECG reviewed by ED Physician in the absence of a elevator mechanic apprentice: yes Interpretation: Interpretation: abnormal Rate: ECG rate:53 [...] Performing Laboratory Urine DEPARTMENT OF PATHOLOGY AND [facility], [address] [place] [address] * hCG qualitative, urine screen (12/23/2016 6:30 PM) Only the most recent of 3 results within the time period is included. Component Value Ref Range hCG qualitative, urine NegativeComment: Sensitivity of HCG test: 25 mIU/mL Specimen Performing Laboratory Urine DEPARTMENT OF PATHOLOGY AND GENOMIC MEDICINE[address] [place] [address] * Gram stain (12/23/2016 6:28 PM) Only the most recent of 3 results within the time period is included. Component Value Ref Range Gram stain result No WBC's Rare Gram positive rods Occasional Gram positive cocci in pairs Comment: Specimen Information Specimen Source: Urine Specimen Site: Clean catch Specimen Performing Laboratory Urine [facility] DEPARTMENT OF PATHOLOGY AND GENOMIC MEDICINE [address] [place] [address] * Urine culture (12/23/2016 6:28 PM) Only the most recent of 3 results within the time period is included. Component Value Ref Range Urine culture isolate Mixed Gram positive vlad 10-2 cfu/ml (A) Comment: Specimen Information Specimen Source: Urine Specimen Site: Clean catch Specimen Performing Laboratory Urine [facility] DEPARTMENT OF PATHOLOGY AND GENOMIC MEDICINE [address] [place] [address] * US Renal (12/19/2016 12:57 PM) Specimen [place] [address] Narrative EXAMINATION:US RENAL CLINICAL HISTORY:HYDRONEPHROSIS, Hematuria COMPARISON:None. FINDINGS: The kidneys are normal in size and echogenicity. There is no evidence of any solid renal mass, calculi, or hydronephrosis. The right kidney wffxbjly06.3X5.4X5.4 cm.there is a small cyst seen within the right kidney.. The left kidney gtjvorsc05.4X5.7 X 5.8 cm. The urinary bladder is unremarkable. IMPRESSION: 1.Normal renal ultrasound examination. 2. The kidneys are of normal size and echotexture. [id number] Procedure Note Interface, Radiology Results Incoming - [...] kidneys are of normal size and echotexture. [id number] * POC glucose (12/18/2016 5:05 AM) Only the most recent of 3 results within the time period is included. Component Value Ref Range POC glucose 155 (H) 65 - 99 mg/dL Comment: [facility] Notified RN Meter ID: [id number] Grey Percher: Carlos Ortega Specimen Performing Laboratory [facility] DEPARTMENT OF PATHOLOGY AND GENOMIC MEDICINE [address] [place] [address] * Fungus smear (12/17/2016 8:05 PM) Component Value Ref Range Fungus smear No fungi observed. Comment: Specimen Information Specimen Source: Peritoneal fluid Specimen Site: Not otherwise specified Specimen Performing Laboratory Peritoneal fluid - Not [facility] DEPARTMENT OF PATHOLOGY AND GENOMIC MEDICINE otherwise specified [address] [place] [address] * AFB culture (12/17/2016 8:05 PM) Component Value Ref Range AFB culture isolate No growth after 6 weeks of incubation. Comment: Specimen Information Specimen Source: Peritoneal fluid Specimen Site: Not otherwise specified Specimen Performing Laboratory Peritoneal fluid - Not [facility] DEPARTMENT OF PATHOLOGY AND GENOMIC MEDICINE otherwise specified [address] [place], [place] [phone] * Aerobic culture (12/17/2016 8:05 PM) Component Value Ref Range Aerobic culture isolate No growth after 3 days. Comment: Specimen Information Specimen Source: Peritoneal fluid Specimen Site: Not otherwise specified Specimen Performing Laboratory Peritoneal fluid - Not [facility] DEPARTMENT OF PATHOLOGY AND GENOMIC MEDICINE otherwise specified [address] [place] [address] * AFB stain (12/17/2016 8:05 PM) Component Value Ref Range AFB stain No acid fast bacilli (AFB) seen. Comment: Specimen Information Specimen Source: Peritoneal fluid Specimen Site: Not otherwise specified Specimen Performing Laboratory Peritoneal fluid - Not [facility] DEPARTMENT OF PATHOLOGY AND GENOMIC MEDICINE otherwise specified [address] [place] [address] * Fungus culture (12/17/2016 8:05 PM) Component Value Ref Range Fungus culture isolate No growth after 4 weeks of incubation. Comment: Specimen Information Specimen Source: Peritoneal fluid Specimen Site: Not otherwise specified Specimen Performing Laboratory Peritoneal fluid - Not [facility] DEPARTMENT OF PATHOLOGY AND [facility] otherwise specified [address] [place] [address] * Anaerobic culture (12/17/2016 8:05 PM) Component Value Ref Range Anaerobic culture isolate No anaerobic organisms isolated. Comment: Specimen Information Specimen Source: Peritoneal fluid Specimen Site: Not otherwise specified Specimen Performing Laboratory Peritoneal fluid - Not [facility] DEPARTMENT OF PATHOLOGY AND [facility] otherwise specified [address] [place] [address] * Partial thromboplastin time, activated (12/17/2016 4:15 PM) Only the most recent of 2 results within the time period is included. Component Value Ref Range PTT 26.0 23.0 - 36.0 sec Comment: PTT therapeutic range for unfractionated heparin is 61.0-112.0 seconds which corresponds to Anti-Xa 0.3-0.7 U/ml. Specimen Performing Laboratory Blood [facility] DEPARTMENT OF PATHOLOGY AND [place] [id number] * Prothrombin time with INR (12/17/2016 4:15 [...] vein thrombosis/pulmonary embolism. Specimen Performing Laboratory Blood [facility] DEPARTMENT OF PATHOLOGY AND [address] [address] * CT Angiogram Pe Chest (12/09/2016 6:39 PM) Specimen Performing Laboratory [facility] [address] [place] [address] Narrative EXAMINATION: CT ANGIOGRAM PE CHEST CLINICAL [...] scan of the chest. Status post cholecystectomy. [id number] Procedure Note [facility], Radiology Results Incoming - 12/09/2016 [...] scan of the chest. Status [facility]olecystectomy. [id number] * Troponin (12/09/2016 5:10 PM) Only the [...] myocardial injury. Specimen Performing Laboratory Plasma specimen [facility] DEPARTMENT OF PATHOLOGY AND GENOMIC MEDICINE [address] [place] [address] * B natriuretic peptide (12/09/2016 3:21 PM) Component Value Ref Range BNP 11 0 - 100 pg/mL Specimen Performing Laboratory Blood [facility] DEPARTMENT OF PATHOLOGY AND GENOMIC MEDICINE [address] [place] [address] * XR Chest 2 Vw (12/09/2016 2:38 PM) Specimen Performing Laboratory [facility] [address] [place] [address] Narrative EXAMINATION:XR CHEST 2 VW CLINICAL HISTORY:Chest Pain COMPARISON:None. FINDINGS: Two views of the chest demonstrate normal cardiomediastinal silhouette. Pulmonary vasculature is within normal limits. Both lungs are clear. No pleural disease is identified. Regional osseous structures is unremarkable. IMPRESSION: No radiographic evidence of acute cardiopulmonary process or active disease of the chest. [id number] Procedure Note Interface, Radiology Results Incoming - [...] process or active disease of the chest. [id number] after 06/23/2016 Insurance Payer Benefit Subscriber ID Type Phone Address Plan / Group [facility] xxxxxxxxxxxx PPO BLUE CROSS BCBS BC xxxxxxxxxxxx PPO CHOICE PPO/K[place] [address]
[2017-06-24] MEDS: ONDANSETRON HCL INJ 2 MG/ML VIAL IV PRN ×3 (11:34→23:02)
[2017-06-24] MEDS: MORPHINE SULFATE 2 MG/ML SYR IV PRN ×3 (11:34→23:02)
[2017-06-24] MEDS ORDERED: PEG (High)/E-LYTE SOLN 4,000 ML BTL PO ONE (15:20)
[2017-06-24] MEDS ORDERED: BISACODYL 5 MG TAB EC PO ONE ×3 (19:00→20:00)
[2017-06-25] VITALS: BP 114/52
[2017-06-25] MEDS ORDERED: PANTOPRAZOLE 40 MG 10ML VIAL IV STA (01:25)
[2017-06-25] MEDS: MORPHINE SULFATE 2 MG/ML SYR IV PRN ×5 (05:39→23:34)
[2017-06-25] MEDS: ONDANSETRON HCL INJ 2 MG/ML VIAL IV PRN ×5 (05:39→23:34)
[2017-06-25 05:43] LABS: BASOPHILS # (AUTO) 0.1 (0.0-0.1); BASOPHILS % 1.3 % (0.0-1.0); EOSINOPHILS # (AUTO) 0.5 (0.0-0.4); EOSINOPHILS % 6.6 % (0.0-6.0); HEMATOCRIT 33.4 % (34.2-44.1); HEMOGLOBIN 10.7 g/dL (12.0-16.0); LYMPHOCYTES # (AUTO) 2.3 (1.0-3.2); LYMPHOCYTES % 34.5 % (18.0-39.1); MEAN CORPUSCULAR HEMOGLOBIN 26.5 pg (28-32); MEAN CORPUSCULAR VOLUME 82.7 fL (81-99); MONOCYTES # (AUTO) 0.6 (0.2-0.8); MONOCYTES % 9.3 % (4.4-11.3); NEUTROPHILS # (AUTO) 3.3 (2.1-6.9); PLATELET COUNT 333 x10e3/uL (140-360); RED BLOOD COUNT 4.04 x10e6/uL (3.6-5.1); RED CELL DISTRIBUTION WIDTH 16.2 % (11.7-14.4)
[2017-06-25 06:10] LABS: ALANINE AMINOTRANSFERASE 15 IU/L (0-55); ALBUMIN 3.6 g/dL (3.5-5.0); ALBUMIN/GLOBULIN RATIO 1.1 (0.8-2.0); ALKALINE PHOSPHATASE 55 IU/L (40-150); ANION GAP 10.5 mmol/L (8-16); BLOOD UREA NITROGEN 5 mg/dL (7-26); BUN/CREATININE RATIO 7 (6-25); CALCIUM 8.8 mg/dL (8.4-10.2); CARBON DIOXIDE 25 mmol/L (22-29); CHLORIDE 108 mmol/L (98-107); CREATININE, SERUM 0.73 mg/dL (0.57-1.11); EST GLOMERULAR FILTRATION RATE > 60 ML/MIN (60-); GLUCOSE 92 mg/dL (74-118); POTASSIUM 3.5 mmol/L (3.5-5.1); SODIUM 140 mmol/L (136-145)
[2017-06-25] MEDS: SODIUM CHLORIDE 0.9% 1000ML 1,000 ML IV SCH ×2 (08:12→16:14)
[2017-06-25] MEDS: PANTOPRAZOLE 40 MG 10ML VIAL IV SCH ×2 (08:53→17:53)
[2017-06-25 09:20] VITALS: BP 115/50
[2017-06-25 09:24] VITALS: BP 115/50
[2017-06-25] MEDS ORDERED: DIATRIZOATE MEGL/DIATRIZOA SOD 120 ML BTL PO ONE (14:54)
--- NOTE | 2017-06-25 16:30 | Diagnostic Imaging Report ---
PROCEDURE:X-RAY BARIUM ENEMA COMPARISON:CT abdomen/pelvis 06/23/17 INDICATIONS:STRICTURE, history of sigmoidectomy with primary anastomosis TECHNIQUE: After obtaining bobbin marker image, non-latex balloon catheter was inserted into the rectum. Retention balloon inflated under direct fluoroscopy. Water-soluble contrast was allowed to fill the colon via gravity drip. Multiple spot fluoroscopic images and overhead images obtained. Fluoroscopic time: 1.4 minutes Radiation dose: 198.943 mGY FINDINGS: Assorter image demonstrates no evidence of dilated bowel, retain contrast, or significant stool burden in the large bowel. COLON:Contrast filled the colon quickly. Circumferential narrowing of the distal colon corresponds to the primary anastomosis between the descending colon and rectum. There is no extravasation of contrast. There are no diverticula. No areas of luminal narrowing identified elsewhere. Contrast was identified within multiple small bowel loops. The appendix did not opacify. No evidence of fistula. Postevacuation images demonstrate no evidence of stool in the large bowel. CONCLUSION: Circumferential luminal narrowing of the colon at the anastomosis. No evidence of narrowing elsewhere in the large bowel. No significant stool burden in the large bowel. Dictated by: Maile Mccord M.D. on 06/25/2017 at 16:29 Electronically approved by: Maile Mccord M.D. on 06/25/2017 at 16:29
[2017-06-25 19:00] VITALS: BP 99/43
[2017-06-25] MEDS ORDERED: CITRATE OF MAGNESIA 300ML BOTTLE PO ONE (20:15)
[2017-06-25 21:30] VITALS: BP 99/43
[2017-06-26] VITALS (7 sets, daily range): BP systolic 84–137; BP diastolic 50–65
[2017-06-26] MEDS: SODIUM CHLORIDE 0.9% 1000ML 1,000 ML IV SCH ×3 (00:32→14:52)
[2017-06-26] MEDS: PANTOPRAZOLE 40 MG 10ML VIAL IV SCH ×2 (08:27→17:00)
[2017-06-26] MEDS: MORPHINE SULFATE 2 MG/ML SYR IV PRN ×3 (08:27→21:26)
[2017-06-26] MEDS: ONDANSETRON HCL INJ 2 MG/ML VIAL IV PRN ×3 (08:27→21:26)
--- NOTE | 2017-06-26 15:11 | Operative Report ---
DATE OF PROCEDURE: June 26, 2017 REFERRING PHYSICIAN: Dr. Brittani Warren. PROCEDURE PERFORMED: Colonoscopy with biopsies and balloon dilatation of a distal sigmoid colon stricture. INDICATIONS FOR COLONOSCOPY: Patient with stricture and distal sigmoid colon on barium enema. She is status post colon resection with colostomy and colostomy takedown in 2017. Now with severe constipation. She is in for a colonoscopy and a balloon dilatation of the aforementioned stricture. MEDICATION: Patient was done under MAC. Please see anesthesiologist's note. PROCEDURE: With the patient in the left lateral decubitus position, the flexible fiberoptic Olympus colonoscope was inserted into the rectum with ease and advanced to approximately 16 cm from the anal verge. The stricture was identified. It could not be traversed with the scope. It was then dilated to size 18 mm per TTS balloon dilators, and subsequently it was traversed with some gentle persistent pressure and the scope advanced all the way to the cecum. Mucosa overlying the cecum appeared to be within normal limits. The ileocecal valve was intubated. The scope was advanced into the terminal ileum. Several aphthous ulcers were noted in the terminal ileum, and biopsies were obtained. The scope was then withdrawn back into the colon. It was then withdrawn slowly. Mucosa overlying the ascending and the transverse as well as the descending grossly appeared to be within normal limits. The scope was then withdrawn into the rectum and retroflexed and small internal hemorrhoids were noted, none of which were actively bleeding. The scope was then straightened out. The rectosigmoid area as well as the distal rectal area were decompressed. The scope was subsequently withdrawn. Patient tolerated the procedure well. Dr. Mele Mackey performed a rigid proctoscopy on the patient, and he will dictate his own separate note. The EGD scope was then introduced into the rectum to the previously described anastomotic stricture, which was dilated to size 20 mm per TTS balloon dilators. The scope was subsequently withdrawn. Patient tolerated the procedure well. IMPRESSION: 1. Terminal ileum, aphthous ulcers, biopsies obtained. 2. Stricture at 16 cm from the anal verge dilated to size 20 mm per TTS balloon dilators. 3. Internal hemorrhoids, none actively bleeding. PLAN: Follow up histology. Check IBD panel, CRP, sed rate. Will initiate GI soft diet. Job#: [id number] EV cc:MD BRITTANI LYNNE MD
[2017-06-26] MEDS ORDERED: MORPHINE SULFATE 2 MG/ML SYR IV STA (15:33)
[2017-06-26] MEDS ORDERED: ONDANSETRON HCL INJ 2 MG/ML VIAL IV STA (15:33)
[2017-06-26] MEDS: HYDROCODONE/APAP 10MG-325MG TAB PO PRN (17:13)
[2017-06-26] MEDS: PANTOPRAZOLE SOD 40 MG TABEC PO SCH (18:00)
[2017-06-26] MEDS ORDERED: GLUCAGON FOR INJ 1 MG VIAL ONE (18:14)
[2017-06-26] MEDS ORDERED: PROPOFOL IV EMULSION 10 MG/ML 50 ML VIAL ONE (18:14)
[2017-06-26] MEDS ORDERED: HYOSCYAMINE SULFATE 0.5 MG/ML AMP ONE (18:14)
[2017-06-26] MEDS ORDERED: MIDAZOLAM HCL 2 MG/2 ML VIAL ONE (18:35)
[2017-06-26] MEDS ORDERED: FENTANYL CITRATE/PF 100MCG/2 ML INJ ONE (18:35)
[2017-06-27] VITALS (8 sets, daily range): BP systolic 93–111; BP diastolic 51–56
[2017-06-27] MEDS: SODIUM CHLORIDE 0.9% 1000ML 1,000 ML IV SCH ×4 (00:17→23:49)
[2017-06-27] MEDS: MORPHINE SULFATE 2 MG/ML SYR IV PRN ×5 (02:45→22:26)
[2017-06-27] MEDS: ONDANSETRON HCL INJ 2 MG/ML VIAL IV PRN ×5 (02:46→22:26)
[2017-06-27] MEDS: PANTOPRAZOLE SOD 40 MG TABEC PO SCH ×2 (07:49→16:02)
[2017-06-27] MEDS: LUBIPROSTONE 24 MCG CAP PO SCH (17:01)
[2017-06-28] VITALS (8 sets, daily range): BP systolic 94–129; BP diastolic 46–74
[2017-06-28] MEDS: ONDANSETRON HCL INJ 2 MG/ML VIAL IV PRN ×2 (02:32→17:25)
[2017-06-28] MEDS: MORPHINE SULFATE 2 MG/ML SYR IV PRN ×2 (02:32→17:25)
[2017-06-28] MEDS: SODIUM CHLORIDE 0.9% 1000ML 1,000 ML IV SCH (07:32)
[2017-06-28] MEDS: PANTOPRAZOLE SOD 40 MG TABEC PO SCH ×2 (07:32→16:09)
[2017-06-28] MEDS: LUBIPROSTONE 24 MCG CAP PO SCH ×2 (08:45→16:09)
[2017-06-28] MEDS ORDERED: LACTULOSE SYRUP 20 GM/30 ML UDC PO PRN (14:45)
[2017-06-28] MEDS ORDERED: BISACODYL 10 MG SUPP PR PRN (21:15)
[2017-06-29] VITALS: BP 146/97
[2017-06-29 04:00] VITALS: BP 114/52
[2017-06-29] MEDS: PANTOPRAZOLE SOD 40 MG TABEC PO SCH (07:36)
[2017-06-29 08:02] VITALS: BP 123/58
[2017-06-29] MEDS: LUBIPROSTONE 24 MCG CAP PO SCH (08:49)
[2017-06-29 10:04] VITALS: BP 123/58
[2017-06-29 11:57] VITALS: BP 117/59
[2017-06-29] MEDS: HYDROCODONE/APAP 10MG-325MG TAB PO PRN (13:15)
--- NOTE | 2017-06-30 02:17 | Discharge Summary ---
HISTORY OF PRESENT ILLNESS: [id number] female who came here with abdominal pain. She had a colon resection in the past and colostomy reversal in 2017 for benign disease. She had a colonoscopy recently done by Dr. Huber Warren with balloon dilatation of anastomotic stricture. Patient is going home today if okay with Dr. Huber Warren. On the colonoscopy, in the terminal ileum aphthous ulcers were found, biopsies were obtained, there was a stricture at 16 cm from the anal verge dilated to a size 20 mm per TTS balloon dilators. She also had internal hemorrhoids, not one was bleeding. Biopsies are still pending, but the patient will follow up with Dr. Huber Warren as an outpatient. She is asymptomatic. She is doing better. She wants to go home. PHYSICAL EXAMINATION: Vital Signs: Blood pressure 117/59, temperature 98 degrees, heart rate 92 per minute, respiratory rate is 20 per minute, oxygen saturation 97%. Abdomen: Soft. No tenderness, no distention, no visceromegaly. On the BMP, sodium 140, potassium 3.5, chloride 108, CO2 25, BUN 5, creatinine 0.73, glucose 92. On the CBC, white blood count 6.79, hemoglobin 10.7, hematocrit 33.4, platelet count 333,000. AST 18, ALT 15, total bilirubin 0.5, alkaline phosphatase of 55. FINAL IMPRESSION: Intractable left abdominal pain and also stricture on the anastomosis on the colon at the level of the sigmoid colon, and she also had ulcers in the terminal ileum. MEDICATIONS ON DISCHARGE: Going to be: 1. Tylenol No. 3 one tablet every 4 hours as needed for severe pain. 2. Amitiza 24 mcg p.o. twice a day for constipation. 3. Lactose 20 g q.4h. as needed for constipation. FOLLOWUP: Patient is going to follow up with Dr. Huber Warren, gastroenterology. Patient needs to follow up on the biopsy report on ileum, and for further treatment based on the biopsy reports. The case has been discussed with the patient. All the questions have been answered. CARMEN IVORY MD Job#: [id number]
== END 2017-06-29 16:05 | disposition home or self-care (01) | DRG 389 ==
LOC: ER 20:23 → ERHOLD 06-24 00:34 → IMCU 06-24 07:50 → OBSVTOIN 06-26 10:33 → MED/SURG2 06-26 17:27
PROC: 0DBB8ZX Excision of Ileum, Via Natural or Artificial Opening Endoscopic, Diagnostic (ICD-10-PCS; principal; 2017-06-26 12:30)
PROC: 0D7N8ZZ Dilation of Sigmoid Colon, Via Natural or Artificial Opening Endoscopic (ICD-10-PCS; 2017-06-26 12:30)
DX: K56.699 Other intestinal obstruction unspecified as to partial versus complete obstruction (principal); K63.3 Ulcer of intestine; K91.89 Other postprocedural complications and disorders of digestive system; K62.4 Stenosis of anus and rectum; K64.8 Other hemorrhoids; K21.9 Gastro-esophageal reflux disease without esophagitis; D63.8 Anemia in other chronic diseases classified elsewhere; E87.6 Hypokalemia
CPT/HCPCS: 36415; 44405; 45330; 45380; 74177; 74270; 80053; 81001; 81025; 82150; 83690; 85025; 85651; 86140; 86256; 86671; 88305; 99284; G0378; J1610; J1980; J2250; J2270; J2405; J7030; Q9963; Q9967